=== PATIENT | female | born 1940 | race Caucasian/White ===

== ENCOUNTER → 2018-08-11 | Outpatient (CLI) | payer MEDICARE, OTHER | LOC: M.RAD 13:39 | DX: Z12.31 Encounter for screening mammogram for malignant neoplasm of breast (principal) ==

== ENCOUNTER 2018-09-30 08:34 | Emergency (ER) | payer MEDICARE, OTHER ==
[~2018-09-30] VITALS: Ht 177.8 cm; Wt 79.4 kg
[2018-09-30] MEDS ORDERED: NEURONTIN600 MG PO (08:44)
[2018-09-30] MEDS ORDERED: SYMBICORT160 MCG/4. INH (08:44)
[2018-09-30 09:11] LABS: ABSOLUTE LYMPHOCYTES 0.7 thou/uL (0.8-5.3); ABSOLUTE MONOCYTES 0.9 thou/uL (0.0-1.2); BASOPHILS 0.7 %; EOSINOPHILS 0.7 %; HEMATOCRIT 37.3 % (37.0-47.0); HEMOGLOBIN 12.3 gm/dL (12.0-15.0); MCV 91.1 fL (80.0-100.0); MONOCYTES 15.2 %; MPV 7.9 fl. (7.2-11.1); NUCLEATED RBCS 0 /100WBC; PLATELET COUNT* 429 thou/uL (150-400); POLYS 71.4 %; RBC 4.09 mil/uL (4.20-5.00); RDW-CV 12.8 % (10.5-14.5); WBC 5.6 thou/uL (4.0-11.0)
[2018-09-30 09:20] LABS: ANION GAP 7 mmol/L (7-16); BUN 16 mg/dL (7-18); CALCIUM 9.2 mg/dL (8.5-10.1); CHLORIDE 103 mmol/L (98-107); CO2 30 mmol/L (21-32); GLUCOSE 95 mg/dL (70-99); POTASSIUM 3.9 mmol/L (3.5-5.1); SODIUM 140 mmol/L (136-145)
[2018-09-30 09:30] LABS: ALBUMIN 3.2 g/dL (3.4-5.0); ALKALINE PHOSPHATASE 98 U/L (46-116); LIPASE 161 U/L (73-393); SGOT 24 U/L (15-37); SGPT 36 U/L (30-65); TOTAL BILIRUBIN 0.3 mg/dL (<0.1-1.0); TROPONIN-I LEVEL <0.06 ng/mL (<0.06)
[2018-09-30] MEDS ORDERED: CARAFATE 1 GM TA1 G1 PO (11:25)
[2018-09-30 11:29] VITALS: BP 138/67
--- NOTE | 2018-09-30 14:30 | EKG ---
[place] [address] ELECTROCARDIOGRAM REPORT Name: BREANNE GUZMAN Room: [facility]#: [id number] Admission: 09/30/18 Attend Phys: Discharge: 09/30/18 Date of : 36 Report #: [id number] THIS REPORT FOR: //name// [facility] ED Test Date: 2018-09-30 Test Time: 09:09:58 Pat Name: BREANNE GUZMAN Department: Room: Gender: F [employer]: CARMEN : 1940 Requested By: Milton Berman Order Number: [id number] MD: Ady Terry Measurements Intervals [place] Rate: 74 P: 49 SC: 188 QRS: 45 QRSD: 139 T: 15 QT: 443 QTc: 492 Interpretive Statements Sinus rhythm Right bundle branch block No previous ECG available for comparison Electronically Signed On 09-30-2018 14:30:05 [employer] by Ady Terry [email or web address] <ELECTRONICALLY SIGNED> By: Ady Terry MD, [facility] 09/30/18 1430 [id number] 8 Ady Terry MD, FACC /EPI
== END 2018-09-30 11:39 | disposition home or self-care (01) ==
LOC: M.ERS 08:34
PROVIDERS: Emergency Medicine Emergency Medical Services
DX: R11.2 Nausea with vomiting, unspecified (principal); R19.7 Diarrhea, unspecified; G62.9 Polyneuropathy, unspecified

== ENCOUNTER 2018-11-21 11:15 | Emergency (ER) | payer MEDICARE, OTHER ==
[~2018-11-21] VITALS: Ht 177.8 cm; Wt 79.4 kg
[~2018-11-21 11:15] MED LIST: CARAFATE 1 GM TA1 G1 PO; NEURONTIN600 MG PO; SYMBICORT160 MCG/4. INH
[2018-11-21] MEDS ORDERED: OMEPRAZOLE20 M2 PO (11:29)
[2018-11-21] MEDS ORDERED: ASPIR 8181 MG PO (11:30)
[2018-11-21] MEDS ORDERED: CALCIUM 500 +1 EAC1 PO (11:30)
[2018-11-21] MEDS ORDERED: BIOTIN5 MG PO (11:30)
[2018-11-21] MEDS ORDERED: BACTRIM DS TAB1 EACH PO (11:31)
[2018-11-21 12:21] LABS: ABSOLUTE EOSINOPHILS 0.1 thou/uL (0.0-0.7); ABSOLUTE LYMPHOCYTES 1.2 thou/uL (0.8-5.3); ABSOLUTE MONOCYTES 0.5 thou/uL (0.0-1.2); ABSOLUTE NEUTROPHILS 4.1 thou/uL (1.6-8.1); BASOPHILS 0.7 %; EOSINOPHILS 1.7 %; HEMOGLOBIN 12.2 gm/dL (12.0-15.0); LYMPHOCYTES 19.8 %; MCH 29.9 pg (26.0-34.0); MCHC 32.9 g/dL (28.0-37.0); MCV 90.9 fL (80.0-100.0); MONOCYTES 8.5 %; MPV 8.2 fl. (7.2-11.1); NUCLEATED RBCS 0 /100WBC; PLATELET COUNT* 359 thou/uL (150-400); POLYS 69.3 %; RBC 4.07 mil/uL (4.20-5.00); RDW-CV 13.9 % (10.5-14.5)
[2018-11-21 12:36] LABS: CALCIUM 9.4 mg/dL (8.5-10.1); CREATININE 1.2 mg/dL (0.6-1.3); POTASSIUM 4.5 mmol/L (3.5-5.1)
[2018-11-21 12:41] LABS: ALBUMIN 3.6 g/dL (3.4-5.0); TOTAL BILIRUBIN 0.2 mg/dL (<0.1-1.0)
[2018-11-21] MEDS ORDERED: AUGMENTIN 500-1 EACH PO (13:34)
[2018-11-21 13:42] VITALS: BP 132/76
== END 2018-11-21 13:45 | disposition home or self-care (01) ==
LOC: M.ERS 11:15
PROVIDERS: Personal Emergency Response Attendant
DX: L03.116 Cellulitis of left lower limb (principal)